=== PATIENT | female | born 1970 | race Two or more races ===

== ENCOUNTER 2016-11-19 15:59 | Emergency (ER) | payer OTHER ==
[~2016-11-19] VITALS: Ht 157.5 cm; Wt 58.1 kg
[2016-11-19 15:59] VITALS: BP 118/66
--- NOTE | 2016-11-19 17:21 | NUR ---
CALLED PATIENT NO ANSWER.
--- NOTE | 2016-11-19 17:35 | NUR ---
2ND CALL, PATIENT IS NOT IN THE WAITING ROOM
--- NOTE | 2016-11-19 17:35 | NUR ---
PATIENT LEFT WITHOUT BEING SEEN BY ER MD.
== END 2016-11-19 17:36 | disposition left against medical advice (07) ==
LOC: ER 16:00
DX: Z53.21 Procedure and treatment not carried out due to patient leaving prior to being seen by health care provider (principal)
CPT/HCPCS: A4606; Z7610

== ENCOUNTER 2017-10-29 23:49 | Emergency (ER) | payer OTHER ==
[~2017-10-29] VITALS: Ht 160 cm; Wt 58.1 kg
--- NOTE | 2017-10-30 00:10 | NUR ---
TO BED 10 AMBULATORY WITH FAMILY MEMBER C/O INTERMITTENT L SIDED CHEST PAIN SINCE WEDNESDAY. PT STATES "I FEEL LIKE I CANT SWALLOW, LIKW SOMETHING STUCK IN MY THROAT". PT APPEARS VERY ANXIOUS AT THIS TIME. PLACE PT ON CARDIAC MONITORING, CONTINUOUS POX. PENDING ER MD PEARSON.
--- NOTE | 2017-10-30 00:11 | NUR ---
er md at bedside to eval pt with orders received.
[2017-10-30] MEDS ORDERED: LORAZEPAM INJ 2 MG/ML VIAL ONE (00:22)
--- NOTE | 2017-10-30 00:26 | NUR ---
pt medicated by nr per er md order.
[2017-10-30] MEDS ORDERED: LORAZEPAM INJ 2 MG/ML VIAL IM ONE (00:30)
--- NOTE | 2017-10-30 01:00 | NUR ---
Patient discharged to home in stable condition. Written and verbal after care instructions given. Patient verbalizes understanding of instruction. ambulatory with a steady gait noted. pt aaox4 no acute distress noted, resp even and unlabored. advice pt not to drive or operate any machinery due to pt was given narcotic medicine. pt verbalize understanding. pt family member at bedside to take pt home.
[2017-10-30 01:05] VITALS: BP 134/86
== END 2017-10-30 01:06 | disposition home or self-care (01) ==
LOC: ER 23:50
DX: F41.9 Anxiety disorder, unspecified (principal); Z90.49 Acquired absence of other specified parts of digestive tract
CPT/HCPCS: 93005; 96372; 99284; A4606; J2060; Z7610

== ENCOUNTER 2018-05-19 13:26 | Emergency (ER) | payer OTHER ==
[~2018-05-19] VITALS: Ht 160 cm; Wt 58.1 kg
--- NOTE | 2018-05-19 13:26 | NUR ---
PT [id number] FROM HOME, R WRIST, R 5TH FINGER LACERATION VS GLASS, PT IS AAOX4, NOT IN RESPIRATORY DISTRESS, V/S STABLE, KEPT RESTED AND COMFORTABLE.
--- NOTE | 2018-05-19 13:45 | NUR ---
PT IS SEEN AND EXAMINED BY CIELO VASQUES
[2018-05-19] MEDS ORDERED: LIDOCAINE HCL/PF 1% 30 ML VIAL TP ONE (14:00)
[2018-05-19] MEDS ORDERED: TDAP [DIPH/PERTUSSIS/TET] 0.5 ML VIAL IM ONE ×2 (14:00→14:07)
[2018-05-19] MEDS ORDERED: LIDOCAINE HCL/MPF 1% 30 ML VIAL IJ ONE (14:07)
[2018-05-19] MEDS ORDERED: IBUPROFEN 600 MG TABLET PO ONE ×2 (14:12→14:30)
--- NOTE | 2018-05-19 14:15 | NUR ---
TDAP AND IBUPROFEN 600MG.
--- NOTE | 2018-05-19 14:16 | NUR ---
GAS PROVER AT BEDSIDE FOR XRAY.
[2018-05-19] MEDS ORDERED: LIDOCAINE 1% INJ 50 ML MDV IJ ONE (14:42)
--- NOTE | 2018-05-19 15:16 | NUR ---
PAGED [facility] [employer] ARCHITECT
[2018-05-19 16:01] VITALS: BP 110/66
--- NOTE | 2018-05-19 16:02 | NUR ---
Patient discharged to home in stable condition. Written and verbal after care instructions given. Patient verbalizes understanding of instruction.
== END 2018-05-19 16:08 | disposition home or self-care (01) ==
LOC: ER 13:31
DX: S61.511A Laceration without foreign body of right wrist, initial encounter (principal); S61.214A Laceration without foreign body of right ring finger without damage to nail, initial encounter; Z90.49 Acquired absence of other specified parts of digestive tract; W18.39XA Other fall on same level, initial encounter; Y93.89 Activity, other specified; Y92.511 Restaurant or cafe as the place of occurrence of the external cause; Y99.8 Other external cause status
CPT/HCPCS: 12002; 73110; 90471; 90715; 99283; A4606; A6403 ×2; J3490 ×3

== ENCOUNTER 2018-05-29 17:52 | Emergency (ER) | payer OTHER ==
[~2018-05-29] VITALS: Ht 149.9 cm; Wt 55.3 kg
[2018-05-29 17:52] VITALS: BP 122/79
== END 2018-05-29 19:49 | disposition home or self-care (01) ==
LOC: ER 18:00
DX: S61.511D Laceration without foreign body of right wrist, subsequent encounter (principal); Z90.49 Acquired absence of other specified parts of digestive tract; W20.8XXD Other cause of strike by thrown, projected or falling object, subsequent encounter
CPT/HCPCS: 29125; 99283; A6402

== ENCOUNTER 2018-06-02 10:48 | Emergency (ER) | payer OTHER ==
[~2018-06-02] VITALS: Ht 149.9 cm; Wt 61.7 kg
[2018-06-02 10:48] VITALS: BP 138/87
== END 2018-06-02 11:49 | disposition home or self-care (01) ==
LOC: ER 10:52
DX: S61.511D Laceration without foreign body of right wrist, subsequent encounter (principal); Z90.49 Acquired absence of other specified parts of digestive tract; W18.02XD Striking against glass with subsequent fall, subsequent encounter
CPT/HCPCS: 99283; A6402